=== PATIENT | female | born 1970 | race Caucasian/White ===

== ENCOUNTER 2016-12-15 06:42 | Day surgery (SDC) | payer BC ==
--- NOTE | ~2016-12-15 | OP ---
Record Of Operation [facility] [address] [place]. [address] NAME: WILNER BERMEO : 68 STATUS : [facility]#: [id number] AGE: 46 ADM/REG DATE : 12/15/16 MR#: [id number] REPORT SERV DATE: 12/20/16 DICTATED BY: KAMI CANTU DATE: 12/15/16 REPORT STATUS : Draft TRANSCRIBED BY: MODL DATE: 12/15/16 DATE OF PROCEDURE: 12/15/2016 PROCEDURES: Bronchoscopy with endobronchial ultrasound, transbronchial needle aspiration, and endobronchial biopsies. INDICATION FOR PROCEDURE: The patient has what sounds to be a diagnosis of underlying sarcoid with mediastinal adenopathy, this procedure is for diagnosis and rule out of lymphoma which can present similarly. PREOPERATIVE DIAGNOSIS: Sarcoid. 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 PROCEDURE NOTE: The patient was brought down to the endoscopy suite, Anesthesia provided sedation and airway protection through an LMA. We placed the bronchoscope through the LMA, placed lidocaine over the vocal cords, no abnormalities noted on the vocal cords. We then entered the trachea, she had small endobronchial raised white lesions throughout all endobronchium, consistent with underlying sarcoid. We then completed our airway examination, prior to that we placed lidocaine for local anesthesia. We then switched over to endobronchial ultrasound. We then conducted transbronchial needle aspirations via EBUS on ATS station 7, 8 passes. We then went to 4R using same technique, had 4 passes. Pathology found scant lymphoid sample on all passes even though the needle was clearly within the lymph node and we did apply suction. We then decided further diagnostic therapies would switch to endobronchial biopsy and conducted 5 passes of the right bronchial intermedius. There was a subsequent good hemostasis after the biopsies. Airway examination after the EBUS and endobronchial biopsy showed no significant bleeding, and the procedure was completed. OUTCOME: Successful bronchoscopy, please await biopsy results. Findings consistent with underlying sarcoid. ADDENDUM During the procedure, we conducted a bronchoalveolar lavage initially of the right upper lobe. HFQ/ERICA Kami Cantu MD / [id number] Record Of Operation [address] [place] [address] NAME: WILNER BERMEO : 68 STATUS : [facility] PAT#: [id number] AGE: 46 ADM/REG DATE : 12/15/16 MR#: [id number] REPORT SERV DATE: 12/20/16 DICTATED BY: KAMI CANTU DATE: 12/15/16 REPORT STATUS : Draft TRANSCRIBED BY: MODL DATE: 12/15/16 CC: MD Osmar Cotton DO
[~2016-12-15 06:42] MED LIST: LEVOTHYROXIN25 MCG PO; PREDFORTE OPH
[2016-12-15 06:58] LABS: BASOPHILS 0.7 %; BASOPHILS ABSOLUTE 0.03 10/3/uL (0.0-0.16); EOSINOPHILS 7.3 %; EOSINOPHILS ABSOLUTE 0.33 10/3/uL (0.0-0.53); HEMATOCRIT 39.5 % (36.0-48.0); HEMOGLOBIN 13.5 g/dL (12.0-16.0); IMMATURE GRANULOCYTES 0.2 %; IMMATURE GRANULOCYTES ABSOLUTE 0.01 10/3/uL (0.0-0.11); LYMPHOCYTES 30.5 %; LYMPHOCYTES ABSOLUTE 1.37 10/3/uL (0.67-4.30); MEAN CORPUS HGB CONC 34.2 g/dL (32.0-36.0); MEAN CORPUSCULAR HEMOGLOB 31.2 pg (26.0-34.0); MEAN CORPUSCULAR VOLUME 91.2 fL (80-100); MEAN PLATELET VOLUME 9.9 fL (9.2-13.0); MONOCYTES 13.4 %; NEUTROPHILS 47.9 %; NEUTROPHILS ABSOLUTE 2.15 10/3/uL (2.02-8.40); PLATELET COUNT 315 10/3/uL (150-400); RBC DISTRIBUTION WIDTH 12.3 % (12.0-16.0); RED CELL COUNT 4.33 10/6/uL (4.0-5.6); WHITE BLOOD CELLS 4.5 10/3/uL (4.5-10.5)
[2016-12-15 06:59] LABS: MANUAL DIFF NO %
[2016-12-15 07:11] LABS: INTERNATIONAL NORMAL RATI 0.9 UNITS (-); PARTIAL THROMBO TIME 26.1 SEC (22.5-37.2)
[2016-12-15 07:19] LABS: PROTIME (NOT ORD) 12.1 SEC (12.0-14.5)
[2016-12-15 12:18] LABS: BD FL LYMPH (NOT ORD) 9 %; BF BASO (NOT OF) 0 %; BF LARGE MONONUCLEAR 91 %; BODY FLUID EOS (NOT ORD) 0 %; BODY FLUID SEG (NOT ORD) 0 %
[2016-12-15 12:19] LABS: BD FL SOURCE (NOT ORD) RUL BAL; BF TOTAL CELL CT (NOT ORD 226 /MM3; BODY FLUID RBC (NOT ORD) 1000 /MM3
== END 2016-12-15 23:59 | disposition home or self-care (01) ==
LOC: DMU 06:42
PROVIDERS: Internal Medicine Critical Care Medicine
PROC: 0BB38ZX Excision of Right Main Bronchus, Via Natural or Artificial Opening Endoscopic, Diagnostic (ICD-10-PCS; principal; 2016-12-15 08:00)
DX: D86.0 Sarcoidosis of lung (principal); E03.9 Hypothyroidism, unspecified; Z79.52 Long term (current) use of systemic steroids; Z79.899 Other long term (current) drug therapy
CPT/HCPCS: 82962; 85025; 85610; 85730; 87015; 87070; 87102; 87107; 87116; 87205; 88112; 88173; 88305; 88312; 89051; 93005; A9270-GY; C1725; J3010

== ENCOUNTER 2017-01-07 22:45 | Emergency (ER) | payer BC ==
[2017-01-07 22:08] LABS: BASOPHILS 0.6 %; BASOPHILS ABSOLUTE 0.03 10/3/uL (0.0-0.16); EOSINOPHILS 5.6 %; EOSINOPHILS ABSOLUTE 0.27 10/3/uL (0.0-0.53); ER CBC TAT 0 Hrs 03 Mins; HEMATOCRIT 36.5 % (36.0-48.0); HEMOGLOBIN 12.5 g/dL (12.0-16.0); IMMATURE GRANULOCYTES 0.2 %; IMMATURE GRANULOCYTES ABSOLUTE 0.01 10/3/uL (0.0-0.11); MEAN CORPUS HGB CONC 34.2 g/dL (32.0-36.0); MEAN CORPUSCULAR HEMOGLOB 31.2 pg (26.0-34.0); MEAN PLATELET VOLUME 9.6 fL (9.2-13.0); MONOCYTES 11.4 %; MONOCYTES ABSOLUTE 0.55 10/3/uL (0.21-1.20); NEUTROPHILS 51.2 %; NEUTROPHILS ABSOLUTE 2.48 10/3/uL (2.02-8.40); PLATELET COUNT 314 10/3/uL (150-400); RBC DISTRIBUTION WIDTH 12.7 % (12.0-16.0); RED CELL COUNT 4.01 10/6/uL (4.0-5.6); WHITE BLOOD CELLS 4.8 10/3/uL (4.5-10.5)
[2017-01-07 22:09] LABS: MANUAL DIFF NO %
[2017-01-07 22:23] LABS: ALKALINE PHOSPHATASE 84 U/L (45-117); CHLORIDE, SERUM 106 MMOL/L (96-112); CREATININE 0.93 MG/DL (0.55-1.02); GFR AFRICAN AMERICAN 85 ML/MIN (>=60); GFR NON AFRICAN AMERICAN 73 ML/MIN (>=60); POTASSIUM, SERUM 3.9 MMOL/L (3.5-5.3); SGPT(ALT) 48 U/L (5-65); SODIUM, SERUM 141 MMOL/L (135-148); TOTAL BILIRUBIN 0.3 MG/DL (0-1.2); TOTAL PROTEIN 7.1 G/DL (6.0-8.5)
[2017-01-07 22:24] LABS: A/G RATIO 1.1 (0.7-1.9); ALBUMIN 3.7 G/DL (3.5-5.0); BUN (BLOOD UREA NITROGEN) 12 MG/DL (6-23); CO2 (CARBON DIOXIDE) 31 MMOL/L (24-34); GLOBULIN 3.4 G/DL (2.5-4.1); GLUCOSE, SERUM 112 MG/DL (60-99)
[2017-01-07 22:25] LABS: SGOT(AST) 24 U/L (5-40)
== END 2017-01-07 23:05 | disposition home or self-care (01) ==
LOC: ER 22:45
PROVIDERS: Emergency Medicine
DX: G51.0 Bell's palsy (principal); Z87.891 Personal history of nicotine dependence; Z86.711 Personal history of pulmonary embolism; Z79.52 Long term (current) use of systemic steroids; Z79.899 Other long term (current) drug therapy
CPT/HCPCS: 70450; 80053; 85025; 99284